=== PATIENT | female | born 1965 | race Caucasian/White ===

== ENCOUNTER 2017-04-05 06:37 | Inpatient (IN) ==
--- NOTE | 2017-04-04 21:00 | Discharge Summary ---
<Chicho Lee - Last Filed: 04/06/17 06:57> Date of Encounter: 04/06/17 Time of Encounter: 06:57 - Discharge Diagnosis (1) Status post total left knee replacement Priority: Primary Status: Acute (2) COPD (chronic obstructive pulmonary disease) Status: Chronic Qualifiers: COPD type: unspecified COPD Qualified Code(s): J44.9 - Chronic obstructive pulmonary disease, unspecified (3) Arthritis of knee, left Priority: Primary Status: Acute (4) Nicotine dependence Priority: Secondary Status: Chronic Qualifiers: Nicotine product type: cigarettes Substance use status: uncomplicated Qualified Code(s): F17.210 - Nicotine dependence, cigarettes, uncomplicated (5) Hypertension Priority: Secondary Status: Chronic Qualifiers: Hypertension type: unspecified Qualified Code(s): I10 - Essential (primary ) hypertension (6) Hyperlipidemia Priority: Secondary Status: Chronic Qualifiers: Hyperlipidemia type: unspecified Qualified Code(s): E78.5 - Hyperlipidemia , unspecified (7) Morbid obesity with BMI of 40.0-44.9, adult Priority: Secondary Status: Chronic - Discharge Medications Home Medications: Albuterol Sulfate [Proair Hfa] 2 puff IH Q4H PRN 04/05/17 [History] Aspirin Enteric Coated [Aspirin EC] 325 mg PO QAM #21 tablet.dr 04/05/17 [Rx] Aspirin [Lo-Dose Aspirin EC] 81 mg PO DAILY 04/05/17 [History] Atorvastatin [Lipitor] 40 mg PO HS 04/05/17 [History] Baclofen [Lioresal] 10 mg PO TID 04/05/17 [History] Citalopram [CeleXA] 20 mg PO DAILY 04/05/17 [History] Ferrous Sulfate [Iron] 325 mg PO DAILY 04/05/17 [History] Furosemide [Lasix] 40 mg PO DAILY 04/05/17 [History] HYDROcodone/Acet 5/325 mg [[place] 5-325 mg] 1 - 2 tab PO Q6H PRN #30 tab [Rx] Isosorbide MONOnitrate (24 HR) [Imdur] 30 mg PO DAILY 04/05/17 [History] Metoprolol Succinate 25 mg PO BID 04/05/17 [History] Potassium Chloride [Klor-Con 10] 10 meq PO DAILY 04/05/17 [History] Ropinirole HCl [Requip] 0.5 mg PO DAILY 04/05/17 [History] Umeclidinium Brm/Vilanterol Tr [Anoro Ellipta 62.5-25 Mcg INH] 1 each IH DAILY 04/05/17 [History] traZODone [TraZODone] 50 mg PO HS 04/05/17 [History] Allergies/Adverse Reactions: Allergies acetaminophen [From Percocet] Allergy (Verified 03/18/16 17:35) Hives Oxycodone [From Percocet] Allergy (Verified 03/18/16 17:35) Hives prochlorperazine Adverse Reaction (Verified 03/18/16 17:35) Anxiety Primary care physician: Lubna Field - Patient Status Disposition: Home, Self-Care Condition: Good Functional capacity at discharge: uses cane/walker Overall status at discharge: patient is progressing back to baseline - Discharge Instructions Follow Up With: Kaia Mishra PAC [Physician Bid Analyst] - 04/15/17 9:00 am Lubna Espinosa DO [Primary Care Provider] - Additional Instructions: Discharge Instructions: Total Knee Replacement Please call [facility] ([phone]), your Primary Care Physician, or report to the Emergency Room if you have any of the following symptoms: Nausea, vomiting, fever greater that 101.5, swelling, chest pain, shortness of breath, increased pain/redness/drainage/odor for your incision site, numbness/ tingling, or any other concerning symptoms. ACTIVITY:Weight-bearing as tolerated. You may progress off support (crutches or walker) as tolerated. MEDICATIONS: Upon discharge resume your home medications. Take all the medications as prescribed. Take a stool softener if taking narcotic pain medications. Stool softeners are only effective if you drink enough fluids. Drink 6-8 glass of water or fluids a day, unless this is not allowed for another health problem. Despite using stool softeners, if you haven't had a bowel movement in 3 days, please switch to a gentle laxative. Gentle laxatives are sold over the counter. You should have a bowel movement within 24 hours, if not call the office. You will be discharged from the hospital with a prescription for pain medication. You are encouraged to decrease the use of narcotic pain medication as tolerated. Should you require a refill, please call the office. [facility] prescribes narcotic pain medication for only 4-6 weeks after surgery. If you require pain medication beyond this time period, you may be referred to your Primary Care Physician or to the Pain Clinic for further evaluation. Plan ahead for refills on pain medication as many narcotics either need to be picked up at the office or mailed. It is best to call 48-72 hours in advance of needing a prescription refill so you don't run out of medication. To help control the post-operative pain, you may take NSAIDs (Aleve,Advil, Motrin, Ibuprofen, Naprosyn) or Tylenol as prescribed on the bottle in addition to the pain medication. ANTICOAGULATION (blood thinners): Continue your Aspirin, Lovenox or Coumadin as prescribed to help prevent a blood clot in the leg or in the lungs. As long as your incision remains dry and you tolerate the NSAIDs (Aleve, Advil, Motrin, ibuprofen, naprosyn), it is OK to use the NSAIDS while you are taking your anticoagulation medication. Should your incision start to drain, stop the NSAID and contact our office. Common symptoms of blood clot in the legs include: localized pain, swelling, calf tenderness, redness or discoloration of the skin. Blood clot in the lung symptoms include: shortness of breath, rapid pulse, sweating, and chest pain that worsens with deep breathing, coughing up blood, lightheadedness, feelings of anxiety. If you experience any of these symptoms notify your physician immediately, go to the emergency room, or if having trouble breathing, call 911. WOUND CARE: Leave the dressing on for 7 to 10days. You may change the dressing if it becomes saturated greater than 50%. Do not get the dressing wet at anytime. Wash your hands with antibacterial soap, rinse and dry prior to any wound care. If you have dylan the visiting nurse or rehab facility can remove the stapes 10-14 days after surgery and place steri-strips across the wound. Leave the steri-strips in place until they fall off on their won. You may let water from the shower run on top of the steri-strips. If you do not have a visiting nurse or rehab facility, you will need to return to the office at 10-14 days for the dylan to be removed. If you have itching or redness around the dressing call the office. FOLLOW-UP: Please follow up with your surgeon in the orthopedic clinic in 4 weeks from the day of surgery. If you have dylan that need to be removed, you will need to come back to the office in 10-14 days from the day of surgery. - Hospital Course Hospital course: Ms. Aldana is a 51 year old female Status post total knee replacement The patient had an uneventful postoperative course. They received antibiotics and physical therapy and were discharged in stable condition. There will follow -up in the office in 2 weeks. Aspirin DVT prophylaxis - Time Spent with Patient Total time spent providing and/or coordinating discharge services: <Tonia Wheeler - Last Filed: 04/06/17 11:16> Date of Encounter: 04/06/17 - Discharge Diagnosis (1) Arthritis of knee, left Priority: Primary Status: Chronic (2) COPD (chronic obstructive pulmonary disease) Priority: Secondary Status: Chronic Qualifiers: COPD type: unspecified COPD Qualified Code(s): J44.9 - Chronic obstructive pulmonary disease, unspecified (3) Nicotine dependence Priority: Secondary Status: Chronic Qualifiers: Nicotine product type: cigarettes Substance use status: uncomplicated Qualified Code(s): F17.210 - Nicotine dependence, cigarettes, uncomplicated (4) Hypertension Priority: Secondary Status: Chronic Qualifiers: Hypertension type: unspecified Qualified Code(s): I10 - Essential (primary ) hypertension (5) Hyperlipidemia Priority: Secondary Status: Chronic Qualifiers: Hyperlipidemia type: unspecified Qualified Code(s): E78.5 - Hyperlipidemia , unspecified Primary care physician: Lubna Field - Hospital Course Hospital course: Ms. Aldana is a 51 year old female - Time Spent with Patient Total time spent providing and/or coordinating discharge services: - VTE Documentation of Mechanical Device: Venous foot pump, device
--- NOTE | 2017-04-05 06:42 | History & Physical Report ---
Date of Encounter: 04/05/17 Time of Encounter: 06:41 24 Hour HP Update - Instructions Instructions: If the History and Physical is less than 30 days old and was completed prior to A.M. admission and or procedure and has NOT been updated on calendar day of procedure please complete this update prior to performing procedure. - Update Patient reports changes in Medical Condition: No Changes in examination, assessment, or condition: No Changes in Medication: No Preop tests/diagnostics Reviewed: Yes Surgery Remains Indicated: Yes Consent for Planned Operative Procedure(s) Verified: Yes - Pre-Operative Checklist Preoperative Checklist Indicated: No Prophylactic Antibiotic Ordered: Yes Is VTE Prophylaxis Indicated?: Yes
[2017-04-05] MEDS ORDERED: *HR* FentaNYL (PF) 100 MCG/2 ML VIAL ONE (07:09)
[2017-04-05] MEDS ORDERED: *HR* Midazolam HCl 2 MG/2 ML VIAL ONE (07:09)
[2017-04-05] MEDS ORDERED: Lidocaine -MPF 2% 2 ML VIAL ONE (07:09)
[2017-04-05] MEDS ORDERED: *HR* Propofol 200 MG/20 ML VIAL IVP ONE ×2 (07:09→08:02)
[2017-04-05] MEDS ORDERED: *HR* Phenylephrine 10 MG/ML VIAL ONE (07:10)
[2017-04-05] MEDS ORDERED: Albuterol 2.5 MG/3 ML NEBULIZER IH ONE (07:10)
[2017-04-05] MEDS ORDERED: CeFAZolin Pre 3,000 MG/100 ML 3,000 MG/100 ML BAG IVPB ONE (07:10)
[2017-04-05] MEDS ORDERED: Ringers Solution, Lactated 1,000 ML IVC SCH ×2 (07:15→10:39)
[2017-04-05] MEDS ORDERED: Famotidine 20 MG/2 ML VIAL IVP ONE (07:17)
[2017-04-05] MEDS ORDERED: Gabapentin 300 MG CAPSULE PO ONE (07:19)
[2017-04-05] MEDS ORDERED: ROPIVACAINE HCL/PF 0.5% 30 ML VIAL ONE (07:43)
[2017-04-05] MEDS ORDERED: Bupivacaine/Clonidine Syringe 1 EACH SYRINGE ONE (07:43)
--- NOTE | 2017-04-05 07:45 | Anesthesia Evaluation PreOp ---
Date of Encounter: 04/05/17 Time of Encounter: 07:45 - Past History Planned Operation: Left TKA Cardiac History: HTN, Hyperlipidemia, Other (CAD treated medically) Pulmonary History: Smoker, COPD [employer] History: Denies Any Significant HX Other Medical History: Other (Morbid Obesity) Anesthesia History: No Prior Anesthetic Complications : No Alcohol Use: none Drug use: none Medications and Allergies Aspirin Enteric Coated [Aspirin EC] 325 mg PO QAM #21 tablet. 04/04/17 [Rx] OxyCODONE Immed Rel [Roxicodone 5 MG] 5 - 10 mg PO Q6HR PRN #40 tablet 04/04/17 [Rx] Allergies acetaminophen [From Percocet] Allergy (Verified 03/18/16 17:35) Hives Oxycodone [From Percocet] Allergy (Verified 03/18/16 17:35) Hives prochlorperazine Adverse Reaction (Verified 03/18/16 17:35) Anxiety - Meds/Allergy Pre-op Review Medications Reviewed: Yes Allergies Reviewed: Yes Beta Blockers on Current Med List: Yes (Took Metoprolol at 0545) Anesthesia Results - Labs Laboratory Tests 03/22/17 03/22/17 11:35 11:35 Hgb 12.9 Hct 40.2 Plt Count 265 Sodium 139 Potassium 3.6 BUN 13 Creatinine 0.88 - Imaging EKG: report reviewed (SR mod intraventricular delay) Anesthesia Exam O2 Sat Height 1.7 m Height 1.7 m Height 1.7 m Weight 121.109 kg Weight 121.109 kg Weight 121.109 kg O2 Sat by Pulse Oximetry 94 O2 Sat by Pulse Oximetry 94 Vital Signs Temp Pulse Resp BP Pulse Ox 98.0 F 67 18 113/72 94 04/05/17 07:00 04/05/17 07:00 04/05/17 07:00 04/05/17 07:00 04/05/17 07:00 Height: 5'7 Weight: 267 lbs NPO (# of Hours): MN Pain Scale: 0 - HEENT Pupil (Motor): Pupils equal, EOMI Mallampati: III Denture Type: Upper: Complete Oral Opening: Less than or equal to 3 - [employer] LOC: Oriented [employer] Motor: Normal RUE, Normal LUE, Normal RLE, Normal LLE, Normal Face [employer] Sensory: Normal: RUE, LUE, RLE, LLE, Face - Cardiac Rhythm: Regular Murmur: None JVD: No Carotid Bruit: No - Pulmonary Breath Sounds: bilateral Clear Respiratory Effort: Symmetrical Anesthesia Assess/Plan ASA Score: 3 Modified James Scale for Level of Consciousness: Cooperative, oriented, and tranquil Anesthetic Plan: General, Regional Monitoring Plan: Standard Monitors Recovery Plan: PACU (Discussed Ga and RA, agrees to proceed)
[2017-04-05] MEDS ORDERED: EPHEDrine 50 MG/ML VIAL ONE (08:42)
--- NOTE | 2017-04-05 08:53 | Anesthesia Procedures ---
Date of Encounter: 04/05/17 Time of Encounter: 08:15 Procedures: Anesthesia - Nerve Block Procedure Date: 04/05/17 Time: 08:15 Checklist: Correct Patient Identifier, Correct procedure, History checked Correct side: Left Blood Thinner: No Monitor Applied: EKG, BP, Pulse Oximetry Supplemental Oxygen via Nasal Cannula (L/min): 2 Sedation: Versed (mg): 2 Sedation: Fentanyl (mcg): 100 Indication: Post Op Analgesia Pre-op Neuro Deficits: No Block Type: Femoral Catheter placed: No Sterile Technique: Yes Ultrasound used: Yes Anatomy identified: Yes Visual spread of Local: Yes Neuro Stimulation: Yes Nerve Stimulator Range: 0.2 - 0.4 mA Blood on Needle Aspiration: No Smooth Injection of Local: Yes Pain with Injection of Local: No Prep: Chlorhexadine Needle: 22 x 50 mm Stimuplex Local: Ropivacaine (0.5% ropivacaine with 8 of decadron) Volume (cc): 30 Number of Attempts: 1 Complications: None/effective block Vitals: vss
--- NOTE | 2017-04-05 09:11 | Orthopedic Operative Note ---
Date of procedure: 04/05/17 Pre-op diagnosis: Left knee arthritis Post-op diagnosis: same Procedure: Procedure: Left Total knee replacement Estimated blood loss: 200 cc Hardware: Metal and polyethylene replacement. Arthrex Femur: 6 Tibia: 5 PS insert: 14 Patella: 34 Exam Under anesthesia: Full flexion and extension no instability Procedural Notes: Patient noted to have grade 4 arthritic changes medial compartment grade 3 arthritic changes patellofemoral joint. Operative procedure: The patient was brought to the operating room and placed on the operating room table. After general anesthesia was administered the operative knee was examined. Findings were noted in the exam under anesthesia. The operative extremity was prepped and draped in sterile surgical fashion. The patient received IV antibiotics prior to skin incision. A standard midline incision was made centered over the patella. The incision was made through the skin and subcutaneous tissue. A medial parapatellar tendon approach was performed. Care was taken to preserve tissue along the medial aspect of the patella. And to protect the patella tendon. The deep MCL was released off the medial tibia. The infra patella fat pad was excised. Knee was brought into flexion. Patient noted to have grade 4 arthritic changes medial compartment grade 3 arthritic changes patellofemoral joint. The entry hole was made for the intramedullary femoral guide. The guide was seated in 6 degrees of valgus. Anterior cut was made followed by the distal cut. The ACL the PCL the medial and the lateral menisci were excised. The tibia was subluxed forward. The entry hole was made for the intramedullary tibial guide. Guide was seated to resect 2 mm off the more abnormal side. The knee was brought into flexion the distal femur was sized to a 6. The femoral guide was seated, the anterior cut was made followed by the posterior condylar cut, followed by the chamfer cuts. The finishing guide was seated the box cut was made and the lug holes were drilled. The tibia was sized to a 5, the tibial tray was seated and prepared with the large drill followed by the fin cutter. Trial reduction revealed full extension no varus valgus instability with the appropriate 14 PS Soniya. The patella was everted and cut was made at the level of the insertion of the quadriceps and patella tendon. The patella was sized to a 34 the guide was seated and the lug holes are drilled. Trial reduction revealed excellent patella tracking. All trial components were removed all bony surfaces were irrigated. The tibia was cemented first followed by the femur. The 14 PS Soniya was seated and the knee was brought into full extension. The patella was cemented and held in place with the patellar holding clamp. After the cement had hardened, the knee sat for 2 minutes with a Betadine saline solution. The knee was then irrigated out with 2 L of pulse irrigation. The PA closed the knee. The extensor mechanism was closed with #2 FiberWire suture and #2 PDS suture. The subcutaneous tissue was then irrigated and closed deep with #1 PDS suture superficially with 0 PDS suture and skin was closed with skin dylan. The patient was then placed in a sterile dressing and a postoperative brace extubated and transferred to recovery room in stable condition. Anesthesia: REINALDO Surgeon: Chicho Lee Water Softener Service Supervisor: Tonia Wheeler Condition: stable Disposition: PACU
[2017-04-05] MEDS ORDERED: Ketorolac 30 MG/ML VIAL ONE (09:17)
[2017-04-05] MEDS ORDERED: *HR* HYDROmorphone 2 MG/ML SYRINGE ONE (09:41)
[2017-04-05] MEDS ORDERED: *HR* Morphine 2 MG/ML SYRINGE IVP PRN (09:50)
[2017-04-05] MEDS ORDERED: Ondansetron 4 MG/2 ML VIAL IVP ONE (09:50)
[2017-04-05] MEDS ORDERED: *HR* Morphine 2 MG/ML SYRINGE ONE (09:52)
[2017-04-05] MEDS: *HR* HYDROmorphone (PF) 1 MG/ML SYRINGE IVP PRN ×2 (09:56→10:11)
[2017-04-05] MEDS ORDERED: *HR* HYDROmorphone (PF) 1 MG/ML SYRINGE ONE (09:56)
[2017-04-05 10:11] LABS: Hematocrit 36.6 % (35.3-44.9); Hemoglobin 11.7 g/dL (11.5-15.4)
--- NOTE | 2017-04-05 10:16 | Anesthesia Evaluation Post Op ---
Date of Encounter: 04/05/17 Time of Encounter: 10:16 - Vital Signs Vital Signs: vss - Lungs Lungs: Clear Ascult./Percussion - Airway Airway: Non-obstructed - Cardiovascular Baseline Rhythm - Mental Status Mental Status: Alert & Oriented, Answers Appropriately - Pain Pain Scale used: Aggarwal-Marrufo (Faces) (tolerable) - Nausea Vomiting Nausea Vomiting: Not Present - Hydration Hydration: Ice chips - Discharge PostOp Status: Transfer Patient to floor
[2017-04-05] MEDS ORDERED: Ondansetron 4 MG/2 ML VIAL IVP PRN (10:39)
[2017-04-05] MEDS ORDERED: *HR* HYDROmorphone (PF) 1 MG/ML SYRINGE IVP PRN (10:39)
[2017-04-05] MEDS ORDERED: Naloxone 0.4 MG/ML INJ IVP PRN (10:39)
[2017-04-05] MEDS ORDERED: MOM Conc 10 ML UD.LIQ PO PRN (10:39)
[2017-04-05] MEDS ORDERED: Temazepam 15 MG CAPSULE PO PRN (10:39)
[2017-04-05] MEDS ORDERED: Sennosides 8.6 MG TABLET PO PRN (10:39)
[2017-04-05] MEDS ORDERED: Naloxone 0.4 MG/ML INJ IVP ONE (12:58)
[2017-04-05] MEDS: *HR* HYDROcodone/Acet 5/325 mg TABLET PO PRN (14:57)
[2017-04-05] MEDS: ceFAZolin 3,000 MG in D5% in Water 100 ML IVPB SCH (16:14)
[2017-04-05] MEDS: *HR* Enoxaparin 30 MG/0.3 ML SYRINGE SQ SCH (17:57)
[2017-04-05] MEDS: Baclofen 10 MG TABLET PO SCH ×3 (17:57→20:33)
[2017-04-05] MEDS ORDERED: *HR* Enoxaparin 30 MG/0.3 ML SYRINGE SQ SCH (18:00)
[2017-04-05] MEDS: (Umeclidinium Brm/Vilanterol Tr [Anoro Ellipta 62.5-2 IH SCH (20:17)
[2017-04-05] MEDS: rOPINIRole 0.25 MG TABLET PO SCH (20:17)
[2017-04-05] MEDS: Metoprolol XL (24 HR) Succ 25 MG TAB.ER.24H PO SCH ×2 (20:17→20:32)
[2017-04-05] MEDS: Furosemide 40 MG TABLET PO SCH (20:19)
[2017-04-05] MEDS: Isosorbide MONOnitrate (24 HR) 30 MG TAB.ER.24H PO SCH (20:20)
[2017-04-05] MEDS: Ibuprofen 800 MG TABLET PO PRN (20:33)
[2017-04-05] MEDS: Aspirin Enteric Coated 81 MG Tablet PO SCH (20:34)
[2017-04-05] MEDS ORDERED: traZODone 50 MG TABLET PO SCH (21:00)
[2017-04-06] MEDS: ceFAZolin 3,000 MG in D5% in Water 100 ML IVPB SCH (00:20)
[2017-04-06] MEDS: *HR* HYDROcodone/Acet 5/325 mg TABLET PO PRN ×2 (00:21→08:24)
[2017-04-06] MEDS: Ibuprofen 800 MG TABLET PO PRN (05:24)
[2017-04-06] MEDS: *HR* Enoxaparin 30 MG/0.3 ML SYRINGE SQ SCH (05:24)
--- NOTE | 2017-04-06 06:59 | Orthopedics Progress Note ---
Date of Encounter: 04/06/17 Time of Encounter: 06:58 - Assessment and Plan (1) Status post total left knee replacement Current Visit: Yes Status: Acute (2) COPD (chronic obstructive pulmonary disease) Current Visit: Yes Status: Chronic Qualifiers: COPD type: unspecified COPD Qualified Code(s): J44.9 - Chronic obstructive pulmonary disease, unspecified (3) Arthritis of knee, left Current Visit: Yes Status: Acute (4) Nicotine dependence Current Visit: Yes Status: Chronic Qualifiers: Nicotine product type: cigarettes Substance use status: uncomplicated Qualified Code(s): F17.210 - Nicotine dependence, cigarettes, uncomplicated (5) Hypertension Current Visit: Yes Status: Chronic Qualifiers: Hypertension type: unspecified Qualified Code(s): I10 - Essential (primary ) hypertension (6) Hyperlipidemia Current Visit: Yes Status: Chronic Qualifiers: Hyperlipidemia type: unspecified Qualified Code(s): E78.5 - Hyperlipidemia , unspecified (7) Morbid obesity with BMI of 40.0-44.9, adult Current Visit: Yes Status: Chronic Subjective Interval history: Patient was seen this morning doing well without complaints. Afebrile vital signs stable. Operative extremity: Neurovascularly intact Dressing clean dry and intact Calves nontender Assessment and plan: Continue with postoperative care Hematocrit 36 discharged today Objective Vital signs: Vital Signs Temp Pulse Resp BP Pulse Ox 04/06/17 04:14 97.6 F 81 17 107/66 95 04/06/17 00:10 98.1 F 84 17 109/75 95 04/05/17 20:26 98.2 F 97 17 117/75 94 04/05/17 13:35 97.5 F L 91 9 105/75 95 04/05/17 12:45 98.5 F 101 7 128/81 90 04/05/17 11:40 97.7 F 94 9 110/80 91 04/05/17 11:06 97.5 F L 88 8 105/76 94 04/05/17 10:58 92 04/05/17 10:45 92 04/05/17 10:41 97.8 F 90 8 112/74 92 04/05/17 10:28 97.5 F L 90 14 104/72 95 04/05/17 10:18 97.5 F L 86 14 100/68 94 04/05/17 10:08 85 14 123/79 97 04/05/17 09:58 82 14 111/71 97 04/05/17 09:48 97 F L 76 14 109/72 94 04/05/17 08:06 65 16 93/68 95 04/05/17 07:52 18 113/72 94 04/05/17 07:30 98.0 F 67 18 113/72 94 04/05/17 07:00 98.0 F 67 18 113/72 94 Intake and Output 04/05/17 04/05/17 04/06/17 15:59 23:59 07:59 Intake Total 100 / 100 100 / 100 Output Total 300 / 300 200 / 200 Balance -200 / -200 -100 / -100 Intake: IV Fluids 100 / 100 100 / 100 Ancef Premix 3,000 MG/100 100 / 100 ML 3,000 mg In 100 ml @ 200 mls/hr IVPB PREOP ONE Rx#:[id number] Ancef 3,000 MG In 100 / 100 Dextrose 5% 100 ML @ 200 mls/hr IVPB Q8HR JACOBO Rx#: [id number] Oral 0 / 0 Output: Urine 200 / 200 Estimated Blood Loss 300 / 300 Other: # Voids 1 1 Weight 126 kg Patient Weight 04/06/17 23:59 Weight 126 kg - Labs CBC & BMP: 04/05/17 10:04 - VTE Documentation of Mechanical Device: Venous foot pump, device Consult Discharge Plan - Plan Referrals: Emir-Lubna Barrios DO [Primary Care Provider] -
[2017-04-06 07:04] VITALS: BP 100/64
[2017-04-06 07:35] LABS: Hematocrit 29.2 % (35.3-44.9)
[2017-04-06 07:43] LABS: Hemoglobin 9.8 g/dL (11.5-15.4)
[2017-04-06 07:57] LABS: BUN/Creatinine Ratio 16 (6-26); Blood Urea Nitrogen 18 mg/dL (7-20); Calcium 8.8 mg/dL (8.6-10.8); Carbon Dioxide 27 mEq/L (19-29); Chloride 99 mEq/L (98-109); Glucose 147 mg/dL (70-99); Osmolality,Calculated 283 (280-300); Potassium 4.1 mEq/L (3.5-4.5); Sodium 134 mEq/L (136-145); eGFR For African Americans > 60 (> 60); eGFR For Non-African Americans 53 (> 60)
[2017-04-06] MEDS: rOPINIRole 0.25 MG TABLET PO SCH (08:23)
[2017-04-06] MEDS: Metoprolol XL (24 HR) Succ 25 MG TAB.ER.24H PO SCH (08:24)
[2017-04-06] MEDS: Baclofen 10 MG TABLET PO SCH (08:24)
[2017-04-06] MEDS: Furosemide 40 MG TABLET PO SCH (08:24)
[2017-04-06] MEDS: Aspirin Enteric Coated 81 MG Tablet PO SCH (08:24)
[2017-04-06] MEDS: (Umeclidinium Brm/Vilanterol Tr [Anoro Ellipta 62.5-2 IH SCH (08:24)
[2017-04-06] MEDS: Isosorbide MONOnitrate (24 HR) 30 MG TAB.ER.24H PO SCH (08:25)
--- NOTE | 2017-04-06 08:31 | Physician Discharge Referral ---
Home Health/Hosp Referral Info Transfer to: Home Health Attending Provider: Dr. Chicho Lee - Diagnosis (1) Status post total left knee replacement Priority: Primary Status: Acute (2) Arthritis of knee, left Priority: Secondary Status: Chronic (3) COPD (chronic obstructive pulmonary disease) Priority: Secondary Status: Chronic (4) Nicotine dependence Priority: Secondary Status: Chronic (5) Hypertension Priority: Secondary Status: Chronic (6) Hyperlipidemia Priority: Secondary Status: Chronic - Respiratory Orders Smoking Cessation: Smoking cessation has been advised. For more information, call the [place] Tobacco Quit Line at 1-428-NEVL-NOW. - Diet/Nutrition Diet/Nutrition Orders: Regular - Activity Activity Orders: Ambulate, Walker - Services Needed Following services are medically necessary services: Physical Therapy, Occupational Therapy Other Treatments: Opsite placed. Keep dressing intact until first follow up appointment. If > 50% saturated,notify offfice, remove dressing and place appropriate dressing back in place. Dressing is water resistant, not water-proof. OK to shower, but do not get dressing wet. Total Knee replacement Precautions x 6 weeks Apply cold therapy wrap 3-6x/day for 20 minutes at a time. Encourage ambulation throughout the day and incentive spirometer 10x/hour. Elevate affected extremity above heart as tolerated. Brace: Wear knee immobilizer at night x 2 weeks. - Transfer Medications Home Medications: Albuterol Sulfate [Proair Hfa] 2 puff IH Q4H PRN 04/05/17 [History] Aspirin Enteric Coated [Aspirin EC] 325 mg PO QAM #21 tablet. 04/05/17 [Rx] Aspirin [Lo-Dose Aspirin EC] 81 mg PO DAILY 04/05/17 [History] Atorvastatin [Lipitor] 40 mg PO HS 04/05/17 [History] Baclofen [Lioresal] 10 mg PO TID 04/05/17 [History] Citalopram [CeleXA] 20 mg PO DAILY 04/05/17 [History] Ferrous Sulfate [Iron] 325 mg PO DAILY 04/05/17 [History] Furosemide [Lasix] 40 mg PO DAILY 04/05/17 [History] HYDROcodone/Acet 5/325 mg [[place] 5-325 mg] 1 - 2 tab PO Q6H PRN #30 tab [Rx] Isosorbide MONOnitrate (24 HR) [Imdur] 30 mg PO DAILY 04/05/17 [History] Metoprolol Succinate 25 mg PO BID 04/05/17 [History] Potassium Chloride [Klor-Con 10] 10 meq PO DAILY 04/05/17 [History] Ropinirole HCl [Requip] 0.5 mg PO DAILY 04/05/17 [History] Umeclidinium Brm/Vilanterol Tr [Anoro Ellipta 62.5-25 Mcg INH] 1 each IH DAILY 04/05/17 [History] traZODone [TraZODone] 50 mg PO HS 04/05/17 [History] Allergies/Adverse Reactions: Allergies acetaminophen [From Percocet] Allergy (Verified 03/18/16 17:35) Hives Oxycodone [From Percocet] Allergy (Verified 03/18/16 17:35) Hives prochlorperazine Adverse Reaction (Verified 03/18/16 17:35) Anxiety Certification: Further, I certify that my clinical findings support that this patient is homebound (i.e. absences from home require considerable and taxing effort and are for medical reasons or adventism services or infrequently or short duration when for other reasons) because: Homebound Reason: Post-surgery restriction and or conditions limit ability to leave home Attestation: My signature below is to certify that this patient is under my care and that I, or nurse practitioner, or physician [employer] assistant manager working with me, has a face-to- face encounter with this patient.
--- NOTE | 2017-04-06 16:11 | Event Note ---
Date of Encounter: 04/06/17 Time of Encounter: 11:00 Patient had bloody drainage noted to proximal aspect of bandage. Opsite removed and wound cleansed. Oozing noted to superior aspect of wound. Discussed with patient and 2 dylan placed in this area with complete stasis of drainage. Opsite bandage replaced. Patient tolerated well.
== END 2017-04-06 11:43 | disposition home health service (06) | DRG 470 ==
LOC: SAMDAY 06:37 → 3NENU 10:58
PROVIDERS: ADMIT Orthopaedic Surgery; ATTEND Orthopaedic Surgery

== ENCOUNTER 2020-12-28 20:01 | Inpatient (IN) ==
[2020-12-29] MEDS ORDERED: Naloxone 0.4 MG/ML INJ IVP PRN (07:27)
[2020-12-29] MEDS ORDERED: Ondansetron 4 MG/2 ML VIAL IVP PRN (07:27)
[2020-12-29] MEDS ORDERED: Ipratropium/Albuterol Neb 3 ML IH PRN (07:32)
[2020-12-29] MEDS: Isosorbide MONOnitrate (24 HR) 30 MG TAB.ER.24H PO SCH (08:39)
[2020-12-29] MEDS: *HR* OxyCODONE/APAP 5/325 TABLET PO PRN ×2 (08:39→12:15)
[2020-12-29] MEDS: Aspirin Enteric Coated 81 MG Tablet PO SCH (08:39)
[2020-12-29] MEDS: Metoprolol XL (24 HR) Succ 25 MG TAB.ER.24H PO SCH ×2 (08:39→20:46)
[2020-12-29] MEDS: rOPINIRole 0.25 MG TABLET PO SCH (08:39)
[2020-12-29] MEDS: Ketorolac 30 MG/ML VIAL IVP PRN ×2 (09:38→18:53)
[2020-12-29] MEDS ORDERED: *HR* HYDROcodone/Acet 5/325 mg TABLET PO PRN (13:27)
[2020-12-29] MEDS ORDERED: traZODone 50 MG TABLET PO SCH (21:00)
[2020-12-29 21:48] LABS: Adenovirus Not Detected (Not Detect); Bordetella Pertussis Not Detected (Not Detect); Chlamydophila pneumoniae Not Detected (Not Detect); Coronavirus 229E Not Detected (Not Detect); Coronavirus HKU1 Not Detected (Not Detect); Coronavirus NL63 Not Detected (Not Detect); Coronavirus OC43 Not Detected (Not Detect); Human Metapneumovirus Not Detected (Not Detect); Human Rhinovirus/Enterovirus Not Detected (Not Detect); Influenza A Subtype 2009 H1 Not Detected (Not Detect); Influenza B Not Detected (Not Detect); Mycoplasma pneumoniae Not Detected (Not Detect); Parainfluenza Virus 1 Not Detected (Not Detect); Parainfluenza Virus 2 Not Detected (Not Detect); Parainfluenza Virus 3 Not Detected (Not Detect); Parainfluenza Virus 4 Not Detected (Not Detect); Respiratory Syncytial Virus Not Detected (Not Detect); SARS-CoV-2 Not Detected (Not Detect)
[2020-12-30] MEDS: Ketorolac 30 MG/ML VIAL IVP PRN ×2 (01:08→07:49)
[2020-12-30 01:35] LABS: Basophils % 0.3 %; Eosinophils # 0.1 K/mcL (0.0-0.6); Eosinophils % 1.5 %; Hematocrit 38.1 % (35.3-44.9); Hemoglobin 12.2 g/dL (11.5-15.4); Immature Granulocytes % 0.4 % (0-4); Lymphocytes % 38.3 %; Mean Corpuscular Hemoglobin 33.4 pg (28.0-33.3); Mean Corpuscular Volume 104.4 fL (83.0-100.0); Mean Platelet Volume 10.4 fL (9.4-12.4); Monocytes # 0.6 K/mcL (0.0-1.3); Monocytes % 8.3 %; Platelet Count 183 K/mcL (140-400); Red Blood Count 3.65 M/mcL (3.82-4.97); Red Cell Distribution Width 12.6 % (11.5-14.5); Segmented Neutrophils % 51.2 %; White Blood Count 7.8 K/mcL (4.3-11.1)
[2020-12-30 01:55] LABS: BUN/Creatinine Ratio 22 (6-26); Blood Urea Nitrogen 18 mg/dL (6-20); Carbon Dioxide 35 mEq/L (23-29); Chloride 104 mEq/L (98-107); Glucose 109 mg/dL (70-105); Osmolality,Calculated 292 (280-300); Phosphorous 4.6 mg/dL (2.7-4.5); Potassium 4.3 mEq/L (3.5-5.1); Sodium 140 mEq/L (136-145); eGFR For African Americans > 60 (> 60); eGFR For Non-African Americans > 60 (> 60)
[2020-12-30] MEDS: *HR* OxyCODONE/APAP 5/325 TABLET PO PRN (05:12)
[2020-12-30] MEDS: Metoprolol XL (24 HR) Succ 25 MG TAB.ER.24H PO SCH ×2 (07:49→21:50)
[2020-12-30] MEDS: Aspirin Enteric Coated 81 MG Tablet PO SCH (07:49)
[2020-12-30] MEDS: Isosorbide MONOnitrate (24 HR) 30 MG TAB.ER.24H PO SCH (07:49)
[2020-12-30] MEDS: rOPINIRole 0.25 MG TABLET PO SCH (07:49)
[2020-12-30] MEDS ORDERED: Ringers Solution, Lactated 1,000 ML IVC SCH ×2 (10:45→14:57)
[2020-12-30] MEDS ORDERED: *HR* HYDROmorphone (PF) 1 MG/ML SYRINGE IVP PRN (10:45)
[2020-12-30] MEDS ORDERED: ceFAZolin 2,000 MG in Water for inj. (sterile) 20 ML IVP ONE (11:13)
[2020-12-30] MEDS ORDERED: *HR* Midazolam HCl 2 MG/2 ML VIAL ONE ×3 (11:21→12:43)
[2020-12-30] MEDS ORDERED: *HR* FentaNYL (PF) 100 MCG/2 ML VIAL ONE ×2 (11:22→12:43)
[2020-12-30] MEDS ORDERED: ROPIVACAINE/PF/NS 0.25% 1 EACH SYRINGE INTRAART ONE (11:22)
[2020-12-30] MEDS ORDERED: Ethanol\\Acetic Acid\\Na Ace\\Ben 1,000 ML IRRIG.SOLN IR ONE (11:41)
[2020-12-30] MEDS ORDERED: Vancomycin 1,000 MG VIAL ONE (11:42)
[2020-12-30] MEDS ORDERED: Povidone-Iodine 45 ML, Sodium Chloride IRRigation 1,000 ML IR ONE (12:00)
[2020-12-30] MEDS ORDERED: TOTAL JOINT MIXTURE (100ML) INTRAART ONE (12:00)
[2020-12-30] MEDS ORDERED: Ondansetron 4 MG/2 ML VIAL ONE (12:43)
[2020-12-30] MEDS ORDERED: *HR* Propofol 200 MG/20 ML VIAL IVP ONE ×2 (12:43→13:28)
[2020-12-30] MEDS ORDERED: Dexamethasone 4 MG/ML VIAL ONE (12:43)
[2020-12-30] MEDS ORDERED: Lidocaine -MPF 2% 2 ML VIAL ONE (12:43)
[2020-12-30] MEDS ORDERED: Tranexamic Acid 1,000 MG/10 ML VIAL ONE (12:44)
[2020-12-30] MEDS ORDERED: *HR* PHENYLEPHRINE 1,000 MCG/10 ML SYRINGE IVP ONE (13:05)
[2020-12-30 14:51] LABS: Hematocrit 35.2 % (35.3-44.9); Hemoglobin 11.2 g/dL (11.5-15.4)
[2020-12-30] MEDS ORDERED: *HR* Promethazine 25 MG/ML VIAL IM PRN (14:57)
[2020-12-30] MEDS ORDERED: *HR* Dextrose 50 % in Water (Vial) 50 ML VIAL IVP PRN (14:57)
[2020-12-30] MEDS ORDERED: Ondansetron 4 MG/2 ML VIAL IVP PRN (14:57)
[2020-12-30] MEDS ORDERED: Dextrose Gel 15 GM/37.5 ML TUBE PO PRN ×2 (14:57)
[2020-12-30] MEDS ORDERED: Sennosides 8.6 MG TABLET PO PRN (14:57)
[2020-12-30] MEDS ORDERED: HYDROcodone BIT/Homatropine 5 MG TABLET PO PRN (14:57)
[2020-12-30] MEDS ORDERED: D5% in Water 1,000 ML IVC PRN (14:57)
[2020-12-30] MEDS ORDERED: Ipratropium/Albuterol Neb 3 ML IH PRN (14:57)
[2020-12-30] MEDS ORDERED: Naloxone 0.4 MG/ML INJ IVP PRN (14:57)
[2020-12-30] MEDS ORDERED: MOM Conc 10 ML UD.LIQ PO PRN (14:57)
[2020-12-30] MEDS: Ascorbic Acid 500 MG TABLET PO SCH (16:45)
[2020-12-30] MEDS: Insulin LISPRO 300 UNITS/3 ML VIAL SUBQ SCH (16:46)
[2020-12-30] MEDS: *HR* OxyCODONE Immed Rel 5 MG TABLET PO PRN ×2 (16:47→21:50)
[2020-12-30] MEDS ORDERED: Insulin LISPRO 300 UNITS/3 ML VIAL SUBQ SCH (21:00)
[2020-12-30] MEDS: CeFAZolin 2 GM/120 ML BAG IVPB SCH (21:50)
[2020-12-31] MEDS: Nicotine 21 MG PATCH.TD24 TD SCH ×2 (01:03→08:13)
[2020-12-31] MEDS: CeFAZolin 2 GM/120 ML BAG IVPB SCH (03:18)
[2020-12-31 06:12] LABS: Basophils % 0.1 %; Hematocrit 31.2 % (35.3-44.9); Hemoglobin 10.5 g/dL (11.5-15.4); Immature Granulocytes % 0.6 % (0-4); Lymphocytes # 1.4 K/mcL (0.6-4.6); Lymphocytes % 10.1 %; Mean Corpuscular HGB Conc 33.7 g/dL (31.6-35.5); Mean Corpuscular Hemoglobin 34.1 pg (28.0-33.3); Mean Corpuscular Volume 101.3 fL (83.0-100.0); Monocytes # 0.6 K/mcL (0.0-1.3); Monocytes % 4.5 %; Platelet Count 173 K/mcL (140-400); Red Blood Count 3.08 M/mcL (3.82-4.97); Red Cell Distribution Width 12.5 % (11.5-14.5); Segmented Neutrophils % 84.7 %
[2020-12-31 06:14] LABS: Neutrophils # 11.9 K/mcL (1.6-8.9); White Blood Count 14.1 K/mcL (4.3-11.1)
[2020-12-31 06:33] LABS: BUN/Creatinine Ratio 22 (6-26); Blood Urea Nitrogen 16 mg/dL (6-20); Calcium 8.8 mg/dL (8.6-10.3); Carbon Dioxide 30 mEq/L (23-29); Chloride 103 mEq/L (98-107); Glucose 164 mg/dL (70-105); Osmolality,Calculated 287 (280-300); Potassium 4.2 mEq/L (3.5-5.1); Sodium 136 mEq/L (136-145); eGFR For African Americans > 60 (> 60); eGFR For Non-African Americans > 60 (> 60)
[2020-12-31] MEDS: Ascorbic Acid 500 MG TABLET PO SCH (08:14)
[2020-12-31] MEDS: *HR* OxyCODONE Immed Rel 5 MG TABLET PO PRN ×2 (08:15→13:14)
[2020-12-31] MEDS: Metoprolol XL (24 HR) Succ 25 MG TAB.ER.24H PO SCH (08:15)
[2020-12-31] MEDS: Insulin LISPRO 300 UNITS/3 ML VIAL SUBQ SCH (08:16)
[2020-12-31] MEDS ORDERED: Isosorbide MONOnitrate (24 HR) 30 MG TAB.ER.24H PO SCH (09:00)
[2020-12-31] MEDS ORDERED: Multivit/Ca/Min/Fe/FA 1 TAB TABLET PO SCH (09:00)
[2020-12-31] MEDS ORDERED: rOPINIRole 0.25 MG TABLET PO SCH (09:00)
[2020-12-31] MEDS ORDERED: Gabapentin 300 MG CAPSULE PO SCH (09:00)
[2020-12-31] MEDS ORDERED: Aspirin Enteric Coated 81 MG Tablet PO SCH ×2 (09:00→11:33)
[2020-12-31 11:59] VITALS: BP 107/64
== END 2020-12-31 13:30 | disposition home health service (06) | DRG 467 ==
LOC: 3NENU → SUATTDRO 12-29 16:20
PROVIDERS: ADMIT Family Medicine; ATTEND Internal Medicine